=== PATIENT | male | born 1940 | race African-American/Black ===

== ENCOUNTER 2019-05-05 00:27 | Inpatient (IN) | payer MEDICARE ==
[~2019-05-05] VITALS: Ht 182.9 cm; Wt 109.0 kg
[2019-05-05] VITALS (7 sets, daily range): BP systolic 96–157; BP diastolic 43–86
[~2019-05-05 00:27] MED LIST: XARELTO15 MG PO; XARELTO20 MG PO
[2019-05-05] MEDS ORDERED: EXCEDRIN CAPLE1 EACH PO (00:35)
[2019-05-05 01:10] LABS: ABSOLUTE BASOPHILS 0.1 thou/uL (0.0-0.2); ABSOLUTE EOSINOPHILS 0.1 thou/uL (0.0-0.7); ABSOLUTE LYMPHOCYTES 2.4 thou/uL (0.8-5.3); ABSOLUTE MONOCYTES 0.6 thou/uL (0.0-1.2); ABSOLUTE NEUTROPHILS 2.6 thou/uL (1.6-8.1); EOSINOPHILS 2.1 %; HEMATOCRIT 43.5 % (42.0-52.0); HEMOGLOBIN 14.7 gm/dL (14.0-18.0); LYMPHOCYTES 41.5 %; MCH 33.2 pg (26.0-34.0); MCHC 33.7 g/dL (28.0-37.0); MCV 98.6 fL (80.0-100.0); MONOCYTES 10.1 %; MPV 8.3 fl. (7.2-11.1); NUCLEATED RBCS 0 /100WBC; PLATELET COUNT* 144 thou/uL (150-400); POLYS 45.3 %; RBC 4.41 mil/uL (4.50-6.00); RDW-CV 12.8 % (10.5-14.5); WBC 5.8 thou/uL (4.0-11.0)
[2019-05-05 01:17] LABS: CALCIUM 8.8 mg/dL (8.5-10.1); CREATININE 1.4 mg/dL (0.6-1.3); POTASSIUM 3.8 mmol/L (3.5-5.1)
[2019-05-05 01:28] LABS: ALBUMIN 3.3 g/dL (3.4-5.0); INR 1.1; TOTAL BILIRUBIN 1.1 mg/dL (<0.1-1.0); TOTAL PROTEIN 7.3 g/dL (6.4-8.2); TROPONIN-I LEVEL 0.1 ng/mL (<0.06)
[2019-05-05] MEDS ORDERED: ASPIR 8181 MG PO (05:22)
--- NOTE | 2019-05-05 06:11 | NUR ---
RECEIVED REPORT AND ASSUMED CARE OF PATIENT APPROX 0500 UPON ARRIVAL TO UNIT FROM ED. VSS ON 2L O2 NC. PATIENT STATES HE FEELS LESS WEAK NOW. PATIENT DENIES CHEST PAIN AND DISCOMFORT. HEPARIN GTT INFUSING PER PROTOCOL. PATIENT EDUCATED ON FALL PRECAUTIONS. CALL LIGHT WITHIN REACH
[2019-05-05 06:40] LABS: URINE BILIRUBIN NEGATIVE (Negative); URINE BLOOD NEGATIVE (Negative); URINE CLARITY CLEAR; URINE COLOR YELLOW; URINE GLUCOSE-RANDOM NEGATIVE (Negative); URINE KETONES 1+ (Negative); URINE LEUKOCYTES-REFLEX NEGATIVE (Negative); URINE NITRITE-REFLEX NEGATIVE (Negative); URINE PROTEIN TRACE (Negative); URINE UROBILINOGEN 0.2 E.U./dl (0.2-1.0)
--- NOTE | 2019-05-05 10:55 | CON ---
[address] [address] CONSULTATION Name: BEESHAUN BURNETT Room: [address] IN M.R.#: [id number] Admission: 05/05/19 Attend Phys: Gregory Alexandra MD Discharge: Date of : 42 Report #: [id number] THIS REPORT FOR: //name// CC: Gregory Sanon DO DATE OF SERVICE: 05/05/2019 CARDIOLOGY CONSULTATION HISTORY OF PRESENT ILLNESS: The patient is a 78-year-old single black male who I was asked to see in the hospital today after complaining of dizziness. The patient previously presented here to [facility] in 11/2016 with shortness of breath. He was seen by the hospitalist and was found to have evidence of a DVT and PE. He was discharged on Xarelto, which he took for approximately a month. Because of his DVT, it was unclear at that time. The patient states he has been doing well recently until last night, he was at home when he went up a flight of stairs. He sat down and felt fatigued. He then felt lightheaded and the room is spinning. He felt short of breath. An ambulance was called. He was brought here to [facility]. He was noted to have abnormal troponin and Cardiology consultation was requested. He denies any significant recent chest pain, fever or cough. He has had no leg pain or swelling. PAST MEDICAL HISTORY: Otherwise significant for tonsillectomy. No history of hypertension, diabetes, hyperlipidemia. MEDICATIONS: He is on no medications. ALLERGIES: He has no known drug allergies. FAMILY HISTORY: Negative for heart disease. SOCIAL HISTORY: He is single, lives here in [place]. 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 No smoking or alcohol abuse. REVIEW OF SYSTEMS: He has had no history of stroke, asthma, peptic ulcer disease, liver disease, kidney disease, cancer, psychiatric illness, chronic skin condition. PHYSICAL EXAMINATION: GENERAL: Revealed an elderly male, lying in bed, appeared in no distress. VITAL SIGNS: Blood pressure is 110/70, pulse is 80, he is afebrile. HEENT: He is anicteric. Conjunctivae pink. Mucous membranes moist. NECK: Veins nondistended. No carotid bruits. Neck supple. CHEST: [place] [address] CONSULTATION Name: SHAUN GAMBOA Room: [address]#: [id number] Admission: 05/05/19 Attend Phys: Gregory Alexandra MD Discharge: Date of : 42 Report #: [id number] CARDIOVASCULAR: Regular rate and rhythm. ABDOMEN: Soft. EXTREMITIES: Had no edema. Dorsalis pedis pulse 2+ bilaterally. SKIN: Warm, dry. NEUROLOGIC: Nonfocal. LYMPH: No adenopathy. MUSCULOSKELETAL: No joint effusion. DIAGNOSTIC DATA: His ECG showed a sinus rhythm. There was no significant ST or T-wave change. His workup in the Emergency Room last night, portable chest x-ray showed normal heart size, clear lung cam. CT scan of the head was performed because of dizziness, showed no acute abnormality. CT scan of the chest using the PE protocol was performed, that showed bilateral pulmonary emboli, small hiatal hernia. Venous duplex scan of the legs was performed. 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 LABORATORY DATA: His lab work, sodium 141, BUN was 15, creatinine 1.4. His troponin is 1.01. White blood cell count 5.8, hemoglobin 14.7. IMPRESSION RECOMMENDATIONS: 1. Non myocardial infarction-related elevated troponin. Suspect related to the pulmonary embolus. Recommend no further cardiac evaluation. The patient had no history of angina or ECG changes. 2. Recurrent pulmonary embolus. I will consider chronic anticoagulation. I would consider a Hematology consult to evaluate for hypercoagulable state. 3. Dizziness. Reason unclear. Possibly related to a pulmonary embolus. Recommend no further cardiac evaluation. <ELECTRONICALLY SIGNED> By: Brooks Horn MD, FACC 05/05/19 1055 0934 1000David Mickie Horn MD, FACC /nt
--- NOTE | 2019-05-05 11:39 | EKG ---
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 05/05/19 1139 0035 0035 Brooks Horn MD, [facility] /EPI
[2019-05-05 12:12] LABS: ALBUMIN 3.3 g/dL (3.4-5.0); CALCIUM 9.1 mg/dL (8.5-10.1); CREATININE 1.4 mg/dL (0.6-1.3); POTASSIUM 4.6 mmol/L (3.5-5.1); TOTAL PROTEIN 7.5 g/dL (6.4-8.2)
[2019-05-05 17:51] LABS: HEMATOCRIT 43.9 % (42.0-52.0); HEMOGLOBIN 14.6 gm/dL (14.0-18.0); MCH 32.7 pg (26.0-34.0); MCHC 33.3 g/dL (28.0-37.0); MCV 98.2 fL (80.0-100.0); MPV 9.3 fl. (7.2-11.1); NUCLEATED RBCS 0 /100WBC; PLATELET COUNT* 163 thou/uL (150-400); RBC 4.47 mil/uL (4.50-6.00); RDW-CV 13.2 % (10.5-14.5); WBC 12.4 thou/uL (4.0-11.0)
[2019-05-05 18:32] LABS: ABSOLUTE LYMPHOCYTES 0.9 thou/uL (0.8-5.3); ABSOLUTE MONOCYTES 0.1 thou/uL (0.0-1.2); ABSOLUTE NEUTROPHILS 11.4 thou/uL (1.6-8.1); METAMYELOCYTES 1 %
[2019-05-05 18:33] LABS: PLATELET ESTIMATE ADEQUATE
--- NOTE | 2019-05-05 18:38 | NUR ---
assumed pt care at 0730, full assesment done as charted. pt a/o x4, denies pain on 2l o2 per protocol, pt denies soa. VSS, pt goes between sr/1stavb/2nd degee type 2. cardiology consult, no new orders. Heparin GTT infusing per protocol, refer to charting. pt instructed bedrest today. plans for possible IVC filter placement tomorrow, pt given education on procedure. Npo after midnight. will continue to monitor.
[2019-05-06] VITALS: BP 108/61
--- NOTE | 2019-05-06 03:50 | NUR ---
ASSUMED PT CARE AT APPROX 1930. PT IS AWAKE AND ORIENTED X4. VSS ON 2L OF O2/NC. HAIR SPECIALIST IN PLACE TRACING SR WITH 1D AVB. PT DENIES CHEST PAIN/DISCOMFORT/SOA. HEPARIN DRIP INFUSING PER PROTOCOL. PT IS FOR IVC FILTER PLACEMENT IN AM. PT ADVISED TO HAVE NOTHING BY MOUTH POST [place], PT VERBALISED UNDERSTANDING. HOURLY ROUNDING DONE FOR SAFETY. CALL LIGHT WITHIN REACH. TM
[2019-05-06 04:00] VITALS: BP 94/51
[2019-05-06 05:10] LABS: CHOLESTEROL 243 mg/dL (<200); HDL CHOLESTEROL 50 mg/dL (>40); LDL CHOLESTEROL 182 mg/dL (<100); TC:HDL 4.9 Ratio (Not establshd); TRIGLYCERIDE 55 mg/dL (<150); VLDL 11 mg/dL (<40)
[2019-05-06 05:28] LABS: SERUM ASSESSMENT Clear
--- NOTE | 2019-05-06 07:15 | NUR ---
CHANGE OF SHIFT BEDSIDE REPORT GIVEN PATIENT SEEN AT BEDSIDE, IN BED RESTING ASSUMED PATIENT CARE
[2019-05-06 08:00] VITALS: BP 106/61
[2019-05-06 12:19] LABS: ABSOLUTE BASOPHILS 0.1 thou/uL (0.0-0.2); ABSOLUTE LYMPHOCYTES 1.5 thou/uL (0.8-5.3); ABSOLUTE MONOCYTES 1.1 thou/uL (0.0-1.2); ABSOLUTE NEUTROPHILS 13.6 thou/uL (1.6-8.1); BASOPHILS 0.7 %; EOSINOPHILS 0.1 %; HEMATOCRIT 41.4 % (42.0-52.0); HEMOGLOBIN 13.7 gm/dL (14.0-18.0); LYMPHOCYTES 9.2 %; MCH 32.8 pg (26.0-34.0); MCHC 33.2 g/dL (28.0-37.0); MONOCYTES 6.7 %; MPV 9.9 fl. (7.2-11.1); NUCLEATED RBCS 0 /100WBC; PLATELET COUNT* 161 thou/uL (150-400); POLYS 83.3 %; RBC 4.18 mil/uL (4.50-6.00); RDW-CV 13.3 % (10.5-14.5); WBC 16.3 thou/uL (4.0-11.0)
[2019-05-06 12:22] LABS: CALCIUM 9.2 mg/dL (8.5-10.1); CREATININE 1.3 mg/dL (0.6-1.3); MAGNESIUM 2.4 mg/dL (1.8-2.4); POTASSIUM 4.3 mmol/L (3.5-5.1)
[2019-05-06 13:00] VITALS: BP 101/62; BP 149/69
--- NOTE | 2019-05-06 13:39 | 2DMMODE ---
[place] [address] 2 D/M-MODE ECHOCARDIOGRAM Name: DONYMIRNASHAUN LEX Room: [address] IN [facility]#: [id number] Admission: 05/05/19 Attend Phys: Gregory Alexandra, Discharge: Date of : 42 Date of Service: 05/06/19 1339 Report #: [id number] THIS REPORT FOR: //name// APPROVED REPORT Study performed: 05/06/2019 10:22:46 EXAM: Comprehensive 2D, Doppler, and color-flow Echocardiogram Patient Location: In-Patient Room #: 203 Status: routine BSA: 2.32 HR: 54 bpm BP: 94/51 mmHg Rhythm: NSR Other Information Study Quality: Good Indications Pulmonary Embolism Dyspnea 2D Dimensions IVSd: 12.31 (7-11mm) LVOT Diam: 21.90 (18-24mm) LVDd: 39.15 mm PWd: 11.10 (7-11mm) Ascending Ao: 34.99 (22-36mm) LVDs: 22.01 (25-40mm) Aortic Root: 33.44 mm Volumes Left Atrial Volume (Systole) LA ESV Index: 18.90 mL/m2 Aortic Valve AoV Peak Saul.: 1.09 m/s AO Peak Gr.: 4.73 mmHg LVOT Max P.54 mmHg AO Mean Gr.: 3.04 mmHg LVOT Mean P.26 mmHg LVOT Max V: 0.80 m/s AO V2 VTI: 21.84 cm LVOT Mean V: 0.52 m/s FLAVIA (VTI): 3.12 cm2 LVOT V1 VTI: 18.08 cm Mitral Valve E/A Ratio: 0.94 MV Decel. Time: 232.06 [place] [address] 2 D/M-MODE ECHOCARDIOGRAM Name: SHAUN GAMBOA Room: [address] IN .R.#: [id number] Admission: 05/05/19 Attend Phys: Gregory Alexandra, Discharge: Date of : 42 Date of Service: 05/06/19 1339 Report #: [id number] MV E Max Saul.: 0.68 m/s MV PHT: 67.30 ms MVA (PHT): 3.27 cm2 TDI E/Lateral E': 6.80 E/Medial E': 9.71 Medial E' Saul.: 0.07 m/s Lateral E' Saul.: 0.10 m/s Pulmonary Valve PV Peak Saul.: 0.75 m/s PV Peak Gr.: 2.22 mmHg Tricuspid Valve RAP Estimate: 5.00 mmHg TR Peak Gr.: 32.72 mmHg RVSP: 37.00 mmHg PA Pressure: 37.00 mmHg Left Ventricle The left ventricle is normal size. There is normal LV segmental wall motion. Mild concentric left ventricular hypertrophy. Left ventricular systolic function is normal. The left ventricular ejection fraction is within the normal range. LVEF is 60-65%. The left ventricular diastolic function is normal. Right Ventricle The right ventricle is normal size. The right ventricular systolic function is normal. Atria The left atrium size is normal. The right atrium size is normal. Aortic Valve The aortic valve is normal in structure. Mild aortic regurgitation. There is no aortic valvular stenosis. Mitral Valve The mitral valve is normal in structure. Mild mitral regurgitation. No evidence of mitral valve stenosis. Tricuspid Valve The tricuspid valve is normal in structure. Mild tricuspid regurgitation. estimated pa pressure 40 mm Hg Pulmonic Valve The pulmonary valve is normal in structure[place] [address] 2 D/M-MODE ECHOCARDIOGRAM Name: SHAUN GAMBOA Room: [address] IN [facility]#: [id number] Admission: 05/05/19 Attend Phys: Gregory Alexandra, Discharge: Date of : 42 Date of Service: 05/06/19 1339 Report #: [id number] regurgitation. Great Vessels The aortic root is normal in size. IVC is normal in size and collapses >50% with inspiration. Pericardium There is no pericardial effusion. <Conclusion> LVEF is 60-65%. Mild concentric left ventricular hypertrophy. Mild mitral regurgitation. Mild aortic regurgitation. Mild tricuspid regurgitation. estimated pa pressure 40 mm Hg <ELECTRONICALLY SIGNED> By: Brooks Horn MD, [facility] 05/06/19 1339 1339 1339 Brooks Horn MD, FAC /INF
--- NOTE | 2019-05-06 13:54 | NUR ---
Pt out of room when CM went to assess, will f/u later
--- NOTE | 2019-05-06 15:11 | OP ---
[address] [address] OPERATIVE REPORT Name: SHAUN GAMBOA Room: [address] IN M.R.#: [id number] Admission: 05/05/19 Attend Phys: Gregory Alexandra MD Discharge: Date of : 41 Report #: [id number] THIS REPORT FOR: //name// CC: Gregory Sanon DATE OF SERVICE: 05/06/2019 PREOPERATIVE DIAGNOSES: 1. Bilateral deep venous thrombosis. 2. Extensive PE with respiratory difficulty high risk for recurrent deep PE. POSTOPERATIVE DIAGNOSES: 1. Bilateral deep venous thrombosis. 2. Extensive PE with respiratory difficulty high risk for recurrent deep PE. PROCEDURES: 1. Ultrasound guidance for venous access right common femoral vein with image saved. 2. Retrievable inferior vena cava filter placement. SURGEON: Miguel Sullivan MD COLLEGE OR UNIVERSITY BUSINESS MANAGER: Dr. Easley. COMPLICATIONS: None. ESTIMATED BLOOD LOSS: Minimal. ANESTHESIA: Local sedation. INDICATIONS FOR PROCEDURE: The patient is a very pleasant 78-year-old -German male who has extensive bilateral DVTs. He also has PE causing respiratory difficulty. He requires a filter. He has failed anticoagulation. Informed consent was obtained with risks including but not limited to bleeding, infection, need for further surgery, pain, , heart attack, stroke, perforation of the vena cava, migration of the filter, fracture of the filter, filter thrombosis. He understood these risks and was agreeable to proceed. DESCRIPTION OF PROCEDURE: The patient was taken to the angio suite, placed in supine position. After adequate sedation was initiated, timeout was performed. The patient's right neck was prepped and draped. I infused 10 mL of 1% lidocaine in the right neck. Under ultrasound guidance with an image saved, I cannulated the right internal jugular vein without difficulty. I used Seldinger technique to exchange out for the filter sheath. We passed the filter sheath down into the inferior vena cava. We performed [place] [address] OPERATIVE REPORT Name: SHAUN GAMBOA Room: [address] IN [facility]#: [id number] Admission: 05/05/19 Attend Phys: Gregory Alexandra MD Discharge: Date of : 41 Report #: [id number] identified a single vena cava. We marked at the level of renal veins. We deployed the Glasscock retrievable tight filter with the tip at the level of the renal veins. The filter deployed without difficulty in good position. I removed the sheath wire. We held pressure for 5 minutes. There was no bleeding or hematoma. <ELECTRONICALLY SIGNED> By: Miguel Sullivan MD 05/06/19 1511 1340 1417Miguel Sullivan MD /nt
[2019-05-06 16:00] VITALS: BP 117/49
[2019-05-06 20:00] VITALS: BP 114/60
[2019-05-07 00:23] VITALS: BP 112/65
--- NOTE | 2019-05-07 03:42 | NUR ---
ASSUMED PT CARE AT APPROX 1930. PT IS AWAKE AND ORIENTED X4. VSS ON 2L OF O2/NC. SUPERVISOR VOLUNTEER SERVICES IN PLACE TRACING SR WITH 1D AVB. PT DENIES PAIN/DISCOMFORT THROUGH THIS SHIFT. RIGHT IJ SITE INTACT W/ VERY MINIMAL DRIED BLOOD NOTED ON GAUZE DRESSING. PT KEPT ON BEDREST WITH HEAD OF BED ELEVATED. CALL LIGHT WITHIN REACH. CLOSELY MONITORED.
[2019-05-07 05:08] LABS: ABSOLUTE BASOPHILS 0.1 thou/uL (0.0-0.2); ABSOLUTE LYMPHOCYTES 2.2 thou/uL (0.8-5.3); ABSOLUTE MONOCYTES 0.5 thou/uL (0.0-1.2); ABSOLUTE NEUTROPHILS 5.2 thou/uL (1.6-8.1); BASOPHILS 0.8 %; EOSINOPHILS 0.6 %; HEMOGLOBIN 13.6 gm/dL (14.0-18.0); LYMPHOCYTES 26.8 %; MCH 32.8 pg (26.0-34.0); MCHC 33.2 g/dL (28.0-37.0); MCV 98.8 fL (80.0-100.0); MONOCYTES 6.8 %; MPV 9.3 fl. (7.2-11.1); NUCLEATED RBCS 0 /100WBC; PLATELET COUNT* 146 thou/uL (150-400); RBC 4.16 mil/uL (4.50-6.00); RDW-CV 13.4 % (10.5-14.5)
[2019-05-07 05:16] VITALS: BP 107/56
[2019-05-07 05:23] LABS: CALCIUM 9.1 mg/dL (8.5-10.1); CREATININE 1.4 mg/dL (0.6-1.3)
--- NOTE | 2019-05-07 07:15 | NUR ---
CHANGE OF SHIFT BEDSIDE REPORT GIVEN PATIENT SEEN AT BEDSIDE, IN BED RESTING ASSUMED PATIENT CARE
[2019-05-07 08:00] VITALS: BP 103/54
--- NOTE | 2019-05-07 10:08 | NUR ---
DISTRIBUTION OPERATION SUPERVISOR SPOKE TO THE PATIENT TO DISCUSS DISCHARGE PLANNING AND PROVIDING ASSISTANCE WITH XARELTO AT D/C. PHYSICIAN PROVIDED SCRIPT FOR XARELTO. D/C BILINGUAL RECEPTIONIST PROVIDED PATIENT WITH 30 PATIENT CO-PAY CARD AND PROVIDED PATIENT WITH XARELTO ASSISTANCE FORM TO COMPLETE AND F/U WITH PRIMARY TO FULLY COMPLETE THE FORM AND FAX SO THAT PATIENT CAN BE APPROVED FOR ASSISTANCE WITH XARELTO FOR LIFE DENPENDING ON HIS FINANCIAL SITUAION. PATIENT CONFIRMS UNDERSTANDING. D/C BILINGUAL RECEPTIONIST ALSO INFORMED PATIENT'S RN OF ALL OF THE ABOVE INFO. CM WILL REMAIN AVAILABLE TO ASSIST AND FOLLOW NEEDED.
--- NOTE | 2019-05-07 10:26 | NUR ---
Pt is A&O. Resides at home with a roommate. Independent. No DME. No hx of HH or SNF. Goal is home at dc. DC shutdown planner to discuss [facility] payment resources.
[2019-05-07 14:32] VITALS: BP 96/57
[2019-05-07 16:00] VITALS: BP 120/58
--- NOTE | 2019-05-07 17:10 | EKG ---
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: : 1940 Requested By: Warner Robbins Order Number: [id number] Thelma MD: Ollie Cool Measurements Intervals [place] Rate: 44 P: 21 [place]: 216 QRS: 8 QRSD: 89 T: -44 QT: 470 QTc: 402 Interpretive Statements Sinus bradycardia Abnormal T, consider ischemia, diffuse leads Compared to ECG 05/05/2019 00:35:23 T-wave abnormality now present Possible ischemia now present Second-degree AV block, Mobitz type I (Wenckebach) no longer present Right ventricular hypertrophy no longer present Electronically Signed On 05-07-2019 17:10:41 CDT by Ollie Cool [email or web address] <ELECTRONICALLY SIGNED> By: Ollie Cool MD, FACC 05/07/19 1710 1522 1522 Ollie Cool MD, FAC /EPI
[2019-05-07 19:07] LABS: ANA INTERPRETATION Negative (())
[2019-05-07 20:00] VITALS: BP 91/50
[2019-05-08] VITALS: BP 119/62
[2019-05-08 04:00] VITALS: BP 115/64
--- NOTE | 2019-05-08 05:01 | NUR ---
ASSUMED PT CARE AT APPROX 1930. PT IS AWAKE AND ALERT X4. VSS ON ROOM AIR. WINDROWER OPERATOR IN PLACE TRACING SR WITH 1D AVB. PT DENIES PAIN AND DISCOMFORT. PT IS ABLE TO SLEEP THROUGH THE NIGHT. CALL LIGHT WITHIN REACH. HOURLY ROUNDING DONE FOR PT SAFETY.
[2019-05-08 08:00] VITALS: BP 112/66
[2019-05-08 12:00] VITALS: BP 118/61
[2019-05-08] MEDS ORDERED: XARELTO15 MG PO (12:06)
[2019-05-08 12:07] VITALS: BP 112/66
[2019-05-08] MEDS ORDERED: XARELTO20 MG PO (12:07)
--- NOTE | 2019-05-08 13:04 | NUR ---
ASSUMED PT CARE AT 0730, FULL ASSESMENT DONE CHARTED. PT A/O X4, DENIES PAIN, ON RA, SATS 92%. PTS VSS, SR/1ST AVB ON THE MONITOR. PT ENCOURAGE TO INCREASE ACTIVITY IN SMALL AMOUNTS TODAY. DISCHARGE ORDERS RECIEVED. PT STATES HIS RIDE CANNOT GET HERE UNTIL 6PM. PT CALLS APPROPRIATLY FOR NEEDS. WILL CONTINUE TO MONITOR.
--- NOTE | 2019-05-08 19:40 | NUR ---
REVIEWED DISCHARGE ORDERS WITH PT, QUESTIONS ANSWERED. PT LEFT UNIT WITH RIDE AT APPROX 1705
--- NOTE | 2019-05-08 19:43 | NUR ---
REVIEWED DISCHARGE INFORMATIONS WITH PATIENT, QUESTIONS ANSWERED. PT LEFT UNIT AT APPROX 1905
--- NOTE | 2019-05-09 11:08 | CON ---
[address] [address] CONSULTATION Name: SHAUN GAMBOA Room: [address] IN M.R.#: [id number] Admission: 05/05/19 Attend Phys: Gregory Alexandra MD Discharge: 05/08/19 Date of : 42 Report #: [id number] THIS REPORT FOR: //name// CC: Gregory Sanon DATE OF SERVICE: 05/05/2019 CONSULT REQUESTED BY: Juanjo Gonzalez DO INDICATION FOR CONSULTATION: Acute pulmonary emboli. HISTORY OF PRESENT ILLNESS: This is a 78-year-old gentleman with past medical history is as mentioned below. This does include a history of DVT and pulmonary emboli in the past in 2017. Apparently, the patient took Xarelto for about a month or so after the event, at which point, he on his own discontinued anticoagulation. He was advised followup studies before evaluating as to whether he can come off anticoagulation in several months when the last event occurred. The patient appears to have had a spontaneous event of DVT and pulmonary emboli in 2017. The same appears to have happened again now. He was at his usual routine when he became short of breath yesterday, eventually presented to the Emergency Room last evening. The patient was diaphoretic, had some cough, but this was not a major complaint. He has some swelling of lower extremities at baseline. No chest pain. Does not have upper respiratory complaints. He answers to the negative for 12 questions for review of systems except as mentioned above. He had evaluation in the Emergency Room performed. He had mild elevation in creatinine. He also did have a CTA chest performed, which shows extensive pulmonary emboli including a saddle embolus. There is venous Dopplers performed, which also shows a deep venous thrombus. The ER physician called me and we decided to start IV heparin. The patient is on IV heparin at this time. PAST MEDICAL HISTORY: DVT and pulmonary emboli, which appear to be spontaneous in 2017. The patient did not take a full course of anticoagulation therapy at that time. There was only mild heart sprain and pulmonary artery systolic towards the upper end of normal range on the echo performed at that time, tonsillectomy, hypertension, hyperlipidemia, diabetes. SOCIAL HISTORY: Lifetime nonsmoker. No known history of heavy alcohol use or illegal drug use. ALLERGIES: No known drug allergies. CURRENT MEDICATIONS: The list is in [facility], reviewed. We have [place] [address] CONSULTATION Name: SHAUN GAMBOA Room: [address] IN [facility]#: [id number] Admission: 05/05/19 Attend Phys: Gregory Alexandra MD Discharge: 05/08/19 Date of : 42 Report #: [id number] FAMILY HISTORY: Heart disease. PHYSICAL EXAMINATION: GENERAL: He is alert, awake and oriented, does not appear to be in any distress at this time. VITAL SIGNS: Has a pulse of 73 and a blood pressure of 103/79. He is saturating 99%. He is on 2 liters nasal cannula. He is in no respiratory distress. His respiratory rate is 16. He is afebrile with a temperature of 36.6. HEENT: Head is normocephalic and atraumatic. Pupils are equal and reactive. There is no throat erythema. NECK: Does not show raised JVP, asymmetry, mass or lymph nodes. CHEST: Symmetrical expansion on inspection and palpation. On auscultation, chest is clear. HEART: Regular. There is no murmur. ABDOMEN: Soft and nontender. EXTREMITIES: Lower extremities do show 2+ edema bilaterally. There is some vague calf tenderness, which in fact is mild. SKIN: Dry and intact. NEUROLOGICAL: Moves all extremities bilaterally equally and spontaneously with no focal deficit identified. IMAGING DATA: The patient's CTA chest as well as venous Dopplers is as described above. The patient's CT head resulted in [employer] and this is also reviewed. ASSESSMENT/PLAN: 1. Lckux-kw-pslnbab pulmonary emboli as well as qdytg-sp-bujwrmr deep venous thrombosis. Had this entire clot developed in his lungs acutely. I would expect hemodynamic instability as well as hypoxemia based on his history, therefore, it appears that we have some chronic pulmonary emboli in the background, and he has now developed acute pulmonary embolism on top. The same appears to be the case with deep venous thrombosis. I feel that at this time, the primary therapy is with anticoagulation. The patient is on IV heparin at this time. I understand that the primary service may want to also proceed with the placement of an IVC filter to avoid further embolization of deep venous thrombosis. I do not have a strong feeling either way regarding placing an IVC filter at this time, I feel that this is a reasonable option. However, I feel that this is a reasonable option. If an IVC filter is placed, I would suggest reevaluation in a few months as to whether it could be removed. The patient likely will need lifelong anticoagulation. The patient may have an underlying hematological disorder, which could explain 2 episodes of spontaneous deep venous thrombosis and pulmonary emboli. I have ordered hypercoagulability panel. I also suggest that we go ahead and obtain a Hematology opinion. Further, I recommend that we do venous Dopplers again in 3 months to reassess [place] [address] [address] CONSULTATION Name: SHAUN GAMBOA Room: [address] IN M.R.#: [id number] Admission: 05/05/19 Attend Phys: Gregory Alexandra MD Discharge: 05/08/19 Date of : 42 Report #: [id number] his deep venous thrombosis. He potentially could also benefit from a CTA chest in a few months. I suggest that we repeat a creatinine in 3 months and see where we stand. The creatinine is normal, but perhaps we inclined to do a CTA chest as well. 2. Mild renal insufficiency. We will give him a small amount of normal saline for renal protection. 3. Edema/evaluation of right heart/rule out cor pulmonale. The Cardiology service is on the case. An echocardiogram is pending at this time. Thanks for this consultation. <ELECTRONICALLY SIGNED> By: Raul Bennett MD 05/09/19 1108 1228 1450Raul Bennett MD /nt
== END 2019-05-08 19:25 | disposition home or self-care (01) | DRG 167 ==
LOC: M.ERS 00:27 → M.TBA-ER 03:21 → M.2W 03:21
PROVIDERS: Emergency Medicine; Internal Medicine Cardiovascular Disease; Internal Medicine Critical Care Medicine; ADMIT Internal Medicine
PROC: 06H03DZ Insertion of Intraluminal Device into Inferior Vena Cava, Percutaneous Approach (ICD-10-PCS; principal; 2019-05-06)
DX: I26.92 Saddle embolus of pulmonary artery without acute cor pulmonale (principal); I82.413 Acute embolism and thrombosis of femoral vein, bilateral; I10 Essential (primary) hypertension; E78.5 Hyperlipidemia, unspecified; E11.9 Type 2 diabetes mellitus without complications; N28.9 Disorder of kidney and ureter, unspecified; N40.0 Benign prostatic hyperplasia without lower urinary tract symptoms; E78.00 Pure hypercholesterolemia, unspecified; I44.30 Unspecified atrioventricular block; Z83.6 Family history of other diseases of the respiratory system; Z80.41 Family history of malignant neoplasm of ovary; Z79.899 Other long term (current) drug therapy

== ENCOUNTER 2019-05-12 18:11 | Inpatient (IN) | payer MEDICARE ==
[~2019-05-12] VITALS: Ht 182.9 cm; Wt 102.6 kg
[2019-05-12 18:11] VITALS: BP 122/78
[~2019-05-12 18:11] MED LIST changes: +ASPIR 8181 MG PO; +EXCEDRIN CAPLE1 EACH PO
[2019-05-12 18:28] LABS: BE -1.6 mmol/L (-2 to +3); PCO2 22.2 mmHg (35.0-45.0); pH 7.542 (7.340-7.450)
[2019-05-12 18:35] LABS: PO2 257.9 mmHg (75.0-100.0)
[2019-05-12 18:35] LABS: HEMOGLOBIN 15.7 gm/dL (14.0-18.0); MCHC 33.4 g/dL (28.0-37.0); MCV 98.7 fL (80.0-100.0); MPV 9.2 fl. (7.2-11.1); NUCLEATED RBCS 0 /100WBC; PLATELET COUNT* 188 thou/uL (150-400); RBC 4.76 mil/uL (4.50-6.00); RDW-CV 13.4 % (10.5-14.5); WBC 5.1 thou/uL (4.0-11.0)
[2019-05-12 18:45] LABS: ANION GAP 14 mmol/L (7-16); BUN 16 mg/dL (7-18); CHLORIDE 104 mmol/L (98-107); CO2 22 mmol/L (21-32); CREATININE 1.5 mg/dL (0.6-1.3); GLUCOSE 120 mg/dL (70-99); SODIUM 140 mmol/L (136-145)
[2019-05-12 18:46] LABS: APTT 24.2 Seconds (25.0-31.3); INR 1.1; PROTIME 10.9 Seconds (9.20-11.50)
[2019-05-12 18:59] LABS: ALBUMIN 3.7 g/dL (3.4-5.0); ALKALINE PHOSPHATASE 91 U/L (46-116); NT-PRO BRAIN NAT PEPTIDE 130 pg/mL (<300); SGOT 18 U/L (15-37); SGPT 35 U/L (30-65); TOTAL BILIRUBIN 1.3 mg/dL (<0.1-1.0); TOTAL PROTEIN 7.8 g/dL (6.4-8.2); TROPONIN-I LEVEL <0.06 ng/mL (<0.06)
[2019-05-12 19:15] LABS: ABSOLUTE BASOPHILS 0.1 thou/uL (0.0-0.2); ABSOLUTE EOSINOPHILS 0.1 thou/uL (0.0-0.7); ABSOLUTE LYMPHOCYTES 1.9 thou/uL (0.8-5.3); ABSOLUTE MONOCYTES 0.8 thou/uL (0.0-1.2); ABSOLUTE NEUTROPHILS 2.3 thou/uL (1.6-8.1); PLATELET ESTIMATE ADEQUATE
[2019-05-12 19:37] VITALS: BP 120/72
[2019-05-13] VITALS (7 sets, daily range): BP systolic 92–119; BP diastolic 52–79
[2019-05-13 01:15] LABS: ABSOLUTE BASOPHILS 0.1 thou/uL (0.0-0.2); ABSOLUTE EOSINOPHILS 0.1 thou/uL (0.0-0.7); ABSOLUTE LYMPHOCYTES 1.6 thou/uL (0.8-5.3); ABSOLUTE MONOCYTES 0.5 thou/uL (0.0-1.2); ABSOLUTE NEUTROPHILS 7.2 thou/uL (1.6-8.1); BASOPHILS 0.8 %; EOSINOPHILS 0.6 %; HEMATOCRIT 45.6 % (42.0-52.0); HEMOGLOBIN 15.2 gm/dL (14.0-18.0); MCHC 33.3 g/dL (28.0-37.0); MCV 98.9 fL (80.0-100.0); MONOCYTES 5.8 %; MPV 9.2 fl. (7.2-11.1); NUCLEATED RBCS 0 /100WBC; PLATELET COUNT* 171 thou/uL (150-400); POLYS 75.8 %; RBC 4.61 mil/uL (4.50-6.00); RDW-CV 13.3 % (10.5-14.5); WBC 9.5 thou/uL (4.0-11.0)
[2019-05-13 02:00] LABS: CALCIUM 8.9 mg/dL (8.5-10.1); CREATININE 1.3 mg/dL (0.6-1.3); POTASSIUM 4.4 mmol/L (3.5-5.1)
[2019-05-14] VITALS (7 sets, daily range): BP systolic 100–111; BP diastolic 57–71
--- NOTE | 2019-05-14 08:42 | CON ---
[address] [address] CONSULTATION Name: STEPHANIE GAMBOAMarivel BURNETT Room: [address] IN M.R.#: [id number] Admission: 05/12/19 Attend Phys: Warner Robbins MD Discharge: Date of : 42 Report #: [id number] THIS REPORT FOR: //name// CC: Warner Sanon REASON FOR CONSULTATION: Respiratory failure and chronic obstructive pulmonary disease. HISTORY OF PRESENT ILLNESS: This is a 78-year-old male patient who was recently discharged from this facility after he was admitted with shortness of breath and found to have pulmonary embolus. He presented to the Emergency Department with increasing shortness of breath and respiratory distress. He was tachypneic. He was watching TV when it started suddenly. Apparently, he was incontinent and he was in significant distress at the time of hospitalization. The patient was in this facility in early May and he was found to have PE and was discharged on Xarelto; however, he did not fill it up and he was off Xarelto since last Monday. He was hospitalized on 05/05 and discharged on 05/08. He had a previous history of DVT and pulmonary embolus back in 2017. At that time, he took Xarelto and apparently he did not take Xarelto enough at that time. In 2017, he stopped it on his own per the records. He presents again with increasing shortness of breath in early May. He was diaphoretic, had some cough and had some dizziness and he had some swelling of the lower extremities at that time, although he does not have swelling of lower extremities at this point. In early May, he had a CT that showed extensive pulmonary emboli including saddle embolus and had venous Doppler, which showed deep venous thrombosis. Today, he looks more comfortable than yesterday. He was able to speak in full sentences. He is on 2 liter oxygen. He is tolerating diet and he has no pain at this point. PAST MEDICAL HISTORY: DVT and pulmonary emboli as mentioned above in 2017 and early 05/2019. Of note, he did not take a full course of anticoagulation back in 2016 and at this time, he did not fill his Xarelto. SOCIAL HISTORY: Never smoked. Does not drink alcohol excessively and does not abuse any drugs. ALLERGIES: No known drug allergies. PAST SURGICAL HISTORY: No recent surgeries. MEDICATIONS: Current medications reviewed and at home, he is supposed to be on Xarelto; although, he did not fill it up. FAMILY HISTORY: [place] [address] CONSULTATION Name: SHAUN GAMBOA Room: [address] IN M.R.#: [id number] Admission: 05/12/19 Attend Phys: Warner Robbins MD Discharge: Date of : 42 Report #: [id number] REVIEW OF SYSTEMS: All systems reviewed with the patient and negative other than as mentioned above. PHYSICAL EXAMINATION: VITAL SIGNS: On examination, he is on 2 liters oxygen with saturation 100%. His blood pressure is 119/79, breathing 17 times a minute, pulse 75, and temperature 36.6. GENERAL APPEARANCE: Awake, alert, oriented, not in pain, not in distress. HEENT: Head: Normocephalic, atraumatic. Eyes: Pupils are reactive to light. Oral Cavity: Moist mucous membrane. Mallampati of 2. External ear looks normal. Nasal cavity: Patent passages. NECK: Full range of movement. CHEST: Air movement heard bilaterally. No wheezes, no crackles. ABDOMEN: Benign, soft, lax, and nontender. Positive bowel sounds. No masses felt, no rebound, no rigidity. EXTREMITIES: Lower extremity, no edema or calf tenderness noted. NEUROLOGIC: Moving all 4 extremities spontaneously. No focal weakness. Cranial nerves are grossly normal. PSYCHIATRIC: Mood and affect slightly anxious. SKIN: Normal for age and race. No rash. LYMPHATICS: No palpable lymph node. LABORATORY DATA: His white blood count 5.1, hemoglobin 15.7 and platelets of 188. His ABG is 7.54/22/257. This was done on 100% oxygen. His PTT was 63.2 this morning on heparin. His potassium 4.4, sodium 139, and creatinine 1.3. BNP not elevated. His echo on 05/05/2019 demonstrated EF of 65% with no diastolic dysfunction, mild mitral regurgitation, and pulmonary systolic pressure of 40 mmHg. He had a chest x-ray upon this hospitalization that showed low lung volumes, no acute pulmonary process on the chest x-ray. IMPRESSION: 1. Acute pulmonary embolus. 2. Acute respiratory failure, hypoxic. 3. 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 4. Status post inferior vena cava filter. 5. Concerns about compliance to medication. PLAN: At this point, I agree with IV heparin. Unfortunately, he was off anticoagulation for 4 days. He was unable to fill his Xarelto because of insurance issues. I did talk to him. Apparently, he was approached already with Coumadin as an option. He actually said that he chose Coumadin to be the treatment of choice for him. We did discuss with him the different options for treatment and diet modification that comes with Coumadin. He is willing to use [facility] [address] [address] CONSULTATION Name: SHAUN GAMBOA Room: [address] ADM IN M.R.#: [id number] Admission: 05/12/19 Attend Phys: Warner Robbins MD Discharge: Date of : 42 Report #: [id number] Coumadin and follow closely regarding the INR. We will continue to wean the oxygen down. Continue supportive care. Start ambulating slowly. <ELECTRONICALLY SIGNED> By: Jaguar Summers MD 05/14/19 0842 [id number] 2056April Durán MD /nt
--- NOTE | 2019-05-14 09:31 | EKG ---
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 : 1940 Requested By: Pedro Hawkins Order Number: [id number] MD: Ollie Cool Measurements Intervals [place] Rate: 77 P: 23 DE: 223 QRS: 19 QRSD: 74 T: 43 QT: 351 QTc: 398 Interpretive Statements Sinus rhythm Prolonged DE interval Compared to ECG 05/07/2019 15:22:59 First degree AV block now present Sinus bradycardia no longer present T-wave abnormality no longer present Possible ischemia no longer present Electronically Signed On 05-14-2019 9:31:20 CDT by Ollie Cool [email or web address] <ELECTRONICALLY SIGNED> By: Ollie Cool MD, FACC 05/14/19 0931 1816 1816 Ollie Cool MD, [facility] /EPI
[2019-05-15] VITALS: BP 108/57
[2019-05-15 04:00] VITALS: BP 106/64
[2019-05-15 08:00] VITALS: BP 102/66
[2019-05-15 10:45] VITALS: BP 103/57
[2019-05-15] MEDS ORDERED: ELIQUIS5 MG PO (15:17)
[2019-05-15 15:59] VITALS: BP 98/65
--- NOTE | 2019-05-16 09:18 | EKG ---
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: : 1940 Requested By: Warner Robbins Order Number: [id number] Thelma MD: Ollie Cool Measurements Intervals [place] Rate: 44 P: 4 ID: [id number] QRS: -1 QRSD: 109 T: 8 QT: 464 QTc: 397 Interpretive Statements Sinus bradycardia Prolonged ID interval Nonspecific T abnormalities, anterior leads Compared to ECG 05/12/2019 18:16:55 T-wave abnormality now present Sinus rhythm no longer present Electronically Signed On 05-16-2019 9:18:11 CDT by Ollie Cool [email or web address] <ELECTRONICALLY SIGNED> By: Ollie Cool MD, FACC 05/16/19 0918 0839 0839 Ollie Cool MD, [facility] /EPI
== END 2019-05-15 19:30 | disposition home or self-care (01) | DRG 175 ==
LOC: M.ERS 18:11 → M.2W 18:22 → M.TBA-ER 18:22 → M.2W 19:55
PROVIDERS: Family Medicine; ADMIT Internal Medicine
DX: I26.99 Other pulmonary embolism without acute cor pulmonale (principal); J96.01 Acute respiratory failure with hypoxia; N17.9 Acute kidney failure, unspecified; E87.2 Acidosis; J44.9 Chronic obstructive pulmonary disease, unspecified; Z86.711 Personal history of pulmonary embolism; Z86.718 Personal history of other venous thrombosis and embolism; Z79.82 Long term (current) use of aspirin; Z79.84 Long term (current) use of oral hypoglycemic drugs; Z95.820 Peripheral vascular angioplasty status with implants and grafts; Z83.6 Family history of other diseases of the respiratory system; Z91.19 Patient's noncompliance with other medical treatment and regimen